=== PATIENT | male | born 1955 | race Asian ===

== ENCOUNTER 2022-01-20 20:06 | Inpatient (IN) ==
[2022-01-20] MEDS ORDERED: Ondansetron 4 mg VIAL 2 MG/ML 2 ml VIAL IV ONE (21:39)
[2022-01-20] MEDS ORDERED: Lactated Ringers 1000 ml BAG 1,000 ML IV ONE ×2 (21:39→23:54)
[2022-01-20] MEDS ORDERED: Morphine 4 MG/ML VIAL (1 ml) IV ONE ×2 (21:39→23:24)
[2022-01-20 22:07] LABS: ABS Lymphocytes 0.9 10^3/ul (1.0-4.8); ABS Neutrophils 13.3 10^3/ul (1.5-7.7); Eosinophil % 0.1 %; Hematocrit 49 % (42-52); Hemoglobin 16.1 g/dL (14.0-18.0); Mean Corpuscular HGB Conc 33 g/dL (31-36); Mean Corpuscular Hemoglobin 30 pg (27-31); Mean Corpuscular Volume 90 fL (80-94); Mean Platelet Volume 9.8 fL (7.4-10.4); Nucleated Red Blood Cells % 0.1; Platelet Count 141 10^3/uL (150-450); Red Blood Count 5.44 10^6 /uL (4.18-5.48); Red Cell Distribution Width 14 % (10-15); White Blood Count 15.2 10^3/uL (3.5-10.8)
[2022-01-20 22:26] LABS: Urine Appearance Clear; Urine Bilirubin 1+ (Small) (Negative); Urine Blood Negative (Negative); Urine Color Amber; Urine Glucose Negative (Negative); Urine Ketones 1+ (15mg/dL) (Negative); Urine Nitrite Negative (Negative); Urine Protein 1+ (30 mg/dL) (Negative); Urine Specific Gravity 1.022 (1.002-1.030); Urine Urobilinogen 0.2 (Negative) (Negative); Urine pH 5.5 (5.0-9.0)
[2022-01-20 22:36] LABS: Urine Bacteria Absent (Absent); Urine Red Blood Cell Absent (Absent); Urine Squamous Epithelial Cell Present (Absent); Urine White Blood Cell Trace(0-5/hpf) (Absent)
[2022-01-20 22:54] LABS: Albumin 4.6 g/dL (3.2-5.2); Albumin/Globulin Ratio 1.8 (1-3); Calcium 9.4 mg/dL (8.6-10.3); Globulin 2.6 g/dL (2-4); Potassium 4.1 mmol/L (3.5-5.0); Total Bilirubin 0.9 mg/dL (0.2-1.0); Total Protein 7.2 g/dL (6.4-8.9); eGFR CKD-EPI 76.6 (>60)
[2022-01-20] MEDS ORDERED: Iohexol 350 (CONTRAST) 500 ML MDV IV ONE (23:17)
[2022-01-21] MEDS ORDERED: Morphine 4 MG/ML VIAL (1 ml) IV ONE (00:44)
[2022-01-21] MEDS ORDERED: HYDROmorphone 1 MG/1 ML SYRINGE IV ONE (02:00)
[2022-01-21] MEDS: Ondansetron 4 mg VIAL 2 MG/ML 2 ml VIAL IV PRN ×4 (02:57→19:39)
[2022-01-21] MEDS ORDERED: Lactated Ringers 1000 ml BAG 1,000 ML IV SCH ×3 (03:00→15:00)
[2022-01-21 04:34] LABS: HDL Cholesterol 58.4 mg/dL
[2022-01-21] MEDS: HYDROmorphone 1 MG/1 ML SYRINGE IV PRN ×5 (04:38→19:38)
[2022-01-21] MEDS: Pantoprazole VIAL 40 MG VIAL IV SCH ×2 (04:38→09:02)
[2022-01-21] MEDS: Heparin 5000 UNITS/ML 1 mL VIAL SUBCUT SCH ×4 (06:33→20:12)
[2022-01-21 07:15] LABS: ABS Lymphocytes 0.9 10^3/ul (1.0-4.8); ABS Monocytes 0.6 10^3/ul (0-0.8); ABS Neutrophils 11.4 10^3/ul (1.5-7.7); Hematocrit 47 % (42-52); Hemoglobin 15.8 g/dL (14.0-18.0); Lymphocyte % 7.2 %; Mean Corpuscular HGB Conc 34 g/dL (31-36); Mean Corpuscular Hemoglobin 30 pg (27-31); Mean Corpuscular Volume 89 fL (80-94); Platelet Count 145 10^3/uL (150-450); Red Blood Count 5.24 10^6 /uL (4.18-5.48); Red Cell Distribution Width 14 % (10-15)
[2022-01-21 08:09] LABS: Calcium 8.6 mg/dL (8.6-10.3); Magnesium 2.1 mg/dL (1.9-2.7); Potassium 3.9 mmol/L (3.5-5.0)
[2022-01-21 15:58] LABS: Hematocrit 49 % (42-52)
[2022-01-21 16:27] LABS: eGFR CKD-EPI 99.6 (>60)
[2022-01-21] MEDS: Lactated Ringers 1000 ml BAG 1,000 ML IV SCH (19:43)
[2022-01-22] MEDS: HYDROmorphone 1 MG/1 ML SYRINGE IV PRN ×6 (01:10→21:44)
[2022-01-22] MEDS: Lactated Ringers 1000 ml BAG 1,000 ML IV SCH ×3 (01:13→09:33)
[2022-01-22] MEDS: Heparin 5000 UNITS/ML 1 mL VIAL SUBCUT SCH ×3 (05:24→20:19)
[2022-01-22] MEDS: Ondansetron 4 mg VIAL 2 MG/ML 2 ml VIAL IV PRN ×5 (05:24→22:44)
[2022-01-22 06:19] LABS: ABS Lymphocytes 0.8 10^3/ul (1.0-4.8); ABS Monocytes 1.1 10^3/ul (0-0.8); ABS Neutrophils 13.5 10^3/ul (1.5-7.7); Eosinophil % 0.1 %; Hematocrit 45 % (42-52); Hemoglobin 14.8 g/dL (14.0-18.0); Lymphocyte % 4.9 %; Mean Corpuscular HGB Conc 33 g/dL (31-36); Mean Corpuscular Hemoglobin 30 pg (27-31); Mean Corpuscular Volume 90 fL (80-94); Mean Platelet Volume 9.7 fL (7.4-10.4); Nucleated Red Blood Cells % 0.1; Platelet Count 130 10^3/uL (150-450); Red Blood Count 5.02 10^6 /uL (4.18-5.48); Red Cell Distribution Width 14 % (10-15); White Blood Count 15.3 10^3/uL (3.5-10.8)
[2022-01-22] MEDS: Pantoprazole VIAL 40 MG VIAL IV SCH (09:28)
[2022-01-22 11:37] LABS: Albumin 3.3 g/dL (3.2-5.2); Magnesium 1.9 mg/dL (1.9-2.7)
[2022-01-22 11:43] LABS: Albumin/Globulin Ratio 1.7 (1-3); HDL Cholesterol 48.5 mg/dL; Phosphorus 2.5 mg/dL (2.5-5.0); Total Protein 5.3 g/dL (6.4-8.9)
[2022-01-22 11:50] LABS: Calcium 7.8 mg/dL (8.6-10.3); Potassium 3.7 mmol/L (3.5-5.0); Total Bilirubin 0.8 mg/dL (0.2-1.0); eGFR CKD-EPI 97.4 (>60)
[2022-01-22] MEDS: Acetaminophen IV 1 GM/100ML 1,000 MG/100 ML BAG IV PRN ×2 (12:24→19:41)
[2022-01-23] MEDS: HYDROmorphone 1 MG/1 ML SYRINGE IV PRN ×8 (00:52→22:48)
[2022-01-23] MEDS: Ondansetron 4 mg VIAL 2 MG/ML 2 ml VIAL IV PRN ×4 (03:14→17:39)
[2022-01-23] MEDS: Acetaminophen IV 1 GM/100ML 1,000 MG/100 ML BAG IV PRN (04:25)
[2022-01-23] MEDS: Heparin 5000 UNITS/ML 1 mL VIAL SUBCUT SCH (05:06)
[2022-01-23 08:26] LABS: Albumin 3.1 g/dL (3.2-5.2); Albumin/Globulin Ratio 1.4 (1-3); Calcium 7.9 mg/dL (8.6-10.3); Globulin 2.2 g/dL (2-4); Potassium 3.8 mmol/L (3.5-5.0); Total Bilirubin 1.1 mg/dL (0.2-1.0); Total Protein 5.3 g/dL (6.4-8.9); eGFR CKD-EPI 100.4 (>60)
[2022-01-23] MEDS: Lactated Ringers 1000 ml BAG 1,000 ML IV SCH ×2 (09:36→18:38)
[2022-01-23 10:57] LABS: Hematocrit 46 % (42-52); Hemoglobin 14.7 g/dL (14.0-18.0); Mean Corpuscular HGB Conc 32 g/dL (31-36); Mean Corpuscular Hemoglobin 29 pg (27-31); Mean Corpuscular Volume 91 fL (80-94); Mean Platelet Volume 10.6 fL (7.4-10.4); Platelet Count 127 10^3/uL (150-450); Red Blood Count 5.04 10^6 /uL (4.18-5.48); Red Cell Distribution Width 14 % (10-15); White Blood Count 16.1 10^3/uL (3.5-10.8)
[2022-01-23] MEDS: Enoxaparin 40 MG/0.4 ML SYR SUBCUT SCH (11:40)
[2022-01-23 12:07] LABS: Urine Appearance Clear; Urine Color Yellow
[2022-01-23 12:08] LABS: Urine Bilirubin 1+ (Small) (Negative); Urine Blood Trace (Intact) (Negative); Urine Glucose Trace (100mg/dL) (Negative); Urine Ketones 3+ (80mg/dL) (Negative); Urine Nitrite Negative (Negative); Urine Protein 2+ (100 mg/dL) (Negative); Urine Specific Gravity 1.031 (1.002-1.030); Urine Urobilinogen >=8.0 (Negative); Urine pH 6.5 (5.0-9.0)
[2022-01-23 12:16] LABS: Urine Bacteria Absent (Absent); Urine Red Blood Cell 2+(6-10/hpf) (Absent); Urine White Blood Cell Trace(0-5/hpf) (Absent)
[2022-01-23] MEDS ORDERED: Piperacillin/Tazobac ADVAN 3.375 GM in NS 0.9% 100 ml BAG 100 ML IV ONE (15:00)
[2022-01-23] MEDS ORDERED: Zosyn per Pharmacy NOTE FOLLOW UP SCH (15:00)
[2022-01-23] MEDS: Senna TAB 8.6 mg TAB PO PRN (17:39)
[2022-01-23] MEDS: Magnesium Hydroxide LIQ 30 ML UDC PO PRN (17:39)
[2022-01-23] MEDS: ZOSYN 3.375 GM Q8H per EXTENDED INFUSION IV SCH (22:08)
[2022-01-24] MEDS: HYDROmorphone 1 MG/1 ML SYRINGE IV PRN ×9 (00:43→22:15)
[2022-01-24] MEDS: ZOSYN 3.375 GM Q8H per EXTENDED INFUSION IV SCH ×3 (05:45→22:21)
[2022-01-24 06:12] LABS: ABS Eosinophils 0.1 10^3/ul (0-0.6); ABS Lymphocytes 1.1 10^3/ul (1.0-4.8); ABS Monocytes 1.4 10^3/ul (0-0.8); ABS Neutrophils 11.8 10^3/ul (1.5-7.7); Eosinophil % 0.4 %; Hematocrit 43 % (42-52); Hemoglobin 14.4 g/dL (14.0-18.0); Lymphocyte % 7.3 %; Mean Corpuscular HGB Conc 34 g/dL (31-36); Mean Corpuscular Hemoglobin 30 pg (27-31); Mean Corpuscular Volume 89 fL (80-94); Mean Platelet Volume 10.3 fL (7.4-10.4); Platelet Count 121 10^3/uL (150-450); Red Blood Count 4.79 10^6 /uL (4.18-5.48); Red Cell Distribution Width 14 % (10-15); White Blood Count 14.4 10^3/uL (3.5-10.8)
[2022-01-24 06:44] LABS: Albumin 2.9 g/dL (3.2-5.2); Albumin/Globulin Ratio 1.4 (1-3); Calcium 7.9 mg/dL (8.6-10.3); Globulin 2.1 g/dL (2-4); Potassium 3.9 mmol/L (3.5-5.0); Total Bilirubin 0.9 mg/dL (0.2-1.0); eGFR CKD-EPI 104.3 (>60)
[2022-01-24] MEDS: Enoxaparin 40 MG/0.4 ML SYR SUBCUT SCH (08:06)
[2022-01-24] MEDS ORDERED: Lactated Ringers 1000 ml BAG 1,000 ML IV SCH (10:23)
[2022-01-24] MEDS: Ondansetron 4 mg VIAL 2 MG/ML 2 ml VIAL IV PRN ×2 (16:08→20:35)
[2022-01-24] MEDS: Senna TAB 8.6 mg TAB PO PRN (20:35)
[2022-01-24] MEDS: NS 0.9% 1000 ml BAG 1,000 ML IV SCH (23:11)
[2022-01-25] MEDS: HYDROmorphone 1 MG/1 ML SYRINGE IV PRN ×9 (01:17→23:42)
[2022-01-25 05:32] LABS: ABS Eosinophils 0.2 10^3/ul (0-0.6); ABS Lymphocytes 0.8 10^3/ul (1.0-4.8); ABS Monocytes 1.2 10^3/ul (0-0.8); ABS Neutrophils 9.7 10^3/ul (1.5-7.7); Eosinophil % 1.5 %; Hematocrit 41 % (42-52); Hemoglobin 13.8 g/dL (14.0-18.0); Lymphocyte % 6.6 %; Mean Corpuscular HGB Conc 33 g/dL (31-36); Mean Corpuscular Hemoglobin 30 pg (27-31); Mean Corpuscular Volume 91 fL (80-94); Mean Platelet Volume 9.6 fL (7.4-10.4); Platelet Count 151 10^3/uL (150-450); Red Blood Count 4.56 10^6 /uL (4.18-5.48); Red Cell Distribution Width 14 % (10-15); White Blood Count 11.9 10^3/uL (3.5-10.8)
[2022-01-25] MEDS: ZOSYN 3.375 GM Q8H per EXTENDED INFUSION IV SCH ×3 (05:38→21:15)
[2022-01-25 06:19] LABS: Calcium 7.7 mg/dL (8.6-10.3); Potassium 3.9 mmol/L (3.5-5.0); eGFR CKD-EPI 105.7 (>60)
[2022-01-25] MEDS: Enoxaparin 40 MG/0.4 ML SYR SUBCUT SCH (07:57)
[2022-01-25] MEDS: Ondansetron 4 mg VIAL 2 MG/ML 2 ml VIAL IV PRN ×2 (07:59→21:26)
[2022-01-25] MEDS: NS 0.9% 1000 ml BAG 1,000 ML IV SCH (12:31)
[2022-01-25] MEDS: CMCS: Alfuzosin ER 10 mg TAB.ER (NF) 10 MG TAB.ER PO SCH (17:36)
[2022-01-26] MEDS: HYDROmorphone 1 MG/1 ML SYRINGE IV PRN ×6 (01:54→20:48)
[2022-01-26] MEDS: NS 0.9% 1000 ml BAG 1,000 ML IV SCH ×3 (01:55→22:07)
[2022-01-26] MEDS: ZOSYN 3.375 GM Q8H per EXTENDED INFUSION IV SCH ×3 (05:22→22:07)
[2022-01-26] MEDS: Magnesium Hydroxide LIQ 30 ML UDC PO PRN ×2 (09:36→20:35)
[2022-01-26] MEDS: Enoxaparin 40 MG/0.4 ML SYR SUBCUT SCH (09:36)
[2022-01-26] MEDS: CMCS: Alfuzosin ER 10 mg TAB.ER (NF) 10 MG TAB.ER PO SCH (09:36)
[2022-01-26] MEDS ORDERED: HYDROmorphone 1 MG/1 ML SYRINGE IV PRN (09:48)
[2022-01-26] MEDS: Senna TAB 8.6 mg TAB PO SCH ×2 (10:12→20:34)
[2022-01-26] MEDS: Ondansetron 4 mg VIAL 2 MG/ML 2 ml VIAL IV PRN (20:49)
[2022-01-26] MEDS ORDERED: HYDROmorphone 1 MG/1 ML SYRINGE IV SLOW PU ONE (23:43)
[2022-01-27] MEDS: HYDROmorphone 1 MG/1 ML SYRINGE IV PRN ×2 (03:11→08:24)
[2022-01-27] MEDS: ZOSYN 3.375 GM Q8H per EXTENDED INFUSION IV SCH (05:13)
[2022-01-27] MEDS ORDERED: Propofol 10 MG/ML 20 ML BTL ONE (07:08)
[2022-01-27] MEDS ORDERED: Succinylcholine 200 mg VIAL 20 mg/ml 10 ml VIAL (200 mg) ONE (07:08)
[2022-01-27] MEDS ORDERED: Ondansetron 4 mg VIAL 2 MG/ML 2 ml VIAL ONE (07:08)
[2022-01-27] MEDS ORDERED: Atropine 1 MG/ML INJ 1 ML VIAL ONE (07:08)
[2022-01-27] MEDS ORDERED: Phenylephrine IV 10 MG/ML 1 ml VIAL ONE (07:08)
[2022-01-27] MEDS ORDERED: Dexamethasone IV 4 MG/ML VIAL 1 ml VIAL ONE (07:08)
[2022-01-27] MEDS ORDERED: Glycopyrrolate IV 0.2 MG/ML 1 ML VIAL ONE (07:08)
[2022-01-27] MEDS ORDERED: Rocuronium 50 mg VIAL 10 mg/ml 5 ml VIAL (50 mg) ONE ×2 (07:09→09:35)
[2022-01-27] MEDS ORDERED: fentaNYL 250 mcg/5 ml 50 MCG/ML 5 ml VIAL (250 MCG) ONE (07:10)
[2022-01-27] MEDS ORDERED: Lidocaine 2% PF 5 ML VIAL ONE (07:12)
[2022-01-27] MEDS ORDERED: Midazolam 2 mg/2 ml VIAL 1 mg/ml 2 ml VIAL (2 mg) ONE (07:19)
[2022-01-27] MEDS: Enoxaparin 40 MG/0.4 ML SYR SUBCUT SCH (07:24)
[2022-01-27] MEDS ORDERED: Bupivacaine 0.25% SDV 30 ML ONE (07:35)
[2022-01-27 07:50] LABS: Hematocrit 37 % (42-52); Hemoglobin 12.5 g/dL (14.0-18.0); Mean Corpuscular HGB Conc 34 g/dL (31-36); Mean Corpuscular Hemoglobin 30 pg (27-31); Mean Corpuscular Volume 90 fL (80-94); Mean Platelet Volume 8.8 fL (7.4-10.4); Platelet Count 172 10^3/uL (150-450); Red Blood Count 4.13 10^6 /uL (4.18-5.48); Red Cell Distribution Width 14 % (10-15); White Blood Count 12.5 10^3/uL (3.5-10.8)
[2022-01-27 08:27] LABS: Potassium 3.9 mmol/L (3.5-5.0)
[2022-01-27 08:28] LABS: Calcium 7.7 mg/dL (8.6-10.3); eGFR CKD-EPI 103.8 (>60)
[2022-01-27] MEDS ORDERED: Phenylephrine 40 mcg/mL 10mL (400mcg) SYRINGE ONE (08:57)
[2022-01-27 09:17] LABS: ABS Eosinophils 0.2 10^3/ul (0-0.6); ABS Lymphocytes 0.7 10^3/ul (1.0-4.8); ABS Monocytes 1.2 10^3/ul (0-0.8); ABS Neutrophils 10.4 10^3/ul (1.5-7.7); Eosinophil % 1.8 %; Lymphocyte % 5.9 %
[2022-01-27] MEDS ORDERED: Naloxone 0.4 mg VIAL 0.4 mg/ml 1 ml VIAL IV PRN (10:18)
[2022-01-27] MEDS ORDERED: Prochlorperazine 5 mg/ml 2 ml VIAL (10 mg) IV PRN (10:18)
[2022-01-27] MEDS ORDERED: HYDROmorphone 1 MG/1 ML SYRINGE IV PRN (10:18)
[2022-01-27] MEDS ORDERED: Acetaminophen IV 1 GM/100ML 1,000 MG/100 ML BAG IV ONE (10:19)
[2022-01-27] MEDS ORDERED: Prochlorperazine 5 mg/ml 2 ml VIAL (10 mg) ONE (10:23)
[2022-01-27] MEDS ORDERED: HYDROmorphone 1 MG/1 ML SYRINGE ONE (10:23)
[2022-01-27] MEDS: CMCS: Alfuzosin ER 10 mg TAB.ER (NF) 10 MG TAB.ER PO SCH (12:50)
[2022-01-27 12:58] VITALS: BP 147/78
== END 2022-01-27 13:30 | disposition home or self-care (01) | DRG 417 ==
LOC: ED 20:06 → MERGE 01-21 02:35 → SUATTDRO 01-21 02:35 → EDHOLD 01-21 02:35 → MED 01-21 06:55
PROVIDERS: ADMIT Internal Medicine; ATTEND Internal Medicine